=== PATIENT | male | born 1970 | race Caucasian/White ===

== ENCOUNTER 2025-04-09 21:15 | Emergency (ER) | payer OTHER ==
[~2025-04-09] VITALS: Ht 162.6 cm; Wt 69.0 kg
[2025-04-09 21:25] VITALS: O2SAT 99
[2025-04-09 23:43] LABS: BASOPHILS % 0.9 % (0.0-2.0); EOSINOPHILS % 3.0 % (0.0-5.0); HEMATOCRIT. 42.4 % (42.0-52.0); HEMOGLOBIN. 14.5 g/dL (14.0-18.0); LYMPHOCYTES % 26.9 % (20.0-50.0); MEAN PLATELET VOLUME 7.4 fl (7.4-10.4); MONOCYTES % 9.2 % (2.0-8.0); NEUTROPHILS % 60.0 % (40.0-76.0); PLATELET 207 x1000/uL (130-400); RED BLOOD CELL COUNT 4.72 mill/uL (4.7-6.1); RED CELL DISTRIBUTION WIDTH 13.3 % (11.6-14.6)
[2025-04-09 23:55] LABS: CREATININE 0.8 mg/dL (0.6-1.3); INR 1.0
[2025-04-09 23:56] LABS: UREA NITROGEN BLOOD 26 mg/dL (9-23)
[2025-04-10 01:35] VITALS: BP 131/78; PULSE 64; RESP 15; TEMP 36.7; O2SAT 99
[2025-04-10 01:50] LABS: CLARITY URINE CLEAR (CLEAR); COLOR URINE YELLOW (YELLOW); GLUCOSE URINE NEGATIVE (NEGATIVE); KETONES URINE NEGATIVE (NEGATIVE); LEUKOCYTE ESTERASE URINE NEGATIVE (NEGATIVE); NITRITE URINE NEGATIVE (NEGATIVE); OCCULT BLOOD URINE 2+ (NEGATIVE); PH URINE 6.0 (4.5-8.0); PROTEIN URINE NEGATIVE (NEGATIVE); SPECIFIC GRAVITY URINE 1.015 (1.005-1.030); UROBILINOGEN URINE 1.0 E.U./dL (0.2-1.0)
[2025-04-10 02:26] LABS: BACTERIA URINE NONE SEEN; RBC URINE 15-25 /hpf (0-2); SQUAMOUS EPITHELIAL CELL URINE NONE SEEN /lpf (RARE/1+); WBC URINE NONE SEEN /hpf (0-2)
== END 2025-04-10 01:38 | disposition home or self-care (01) ==
LOC: ER 21:15
DX: R31.9 Hematuria, unspecified (principal)
CPT/HCPCS: 36415; 76770; 80048; 81003; 85025; 99284